=== PATIENT | male | born 1970 | race Caucasian/White ===

== ENCOUNTER 2022-11-27 09:43 | Day surgery (SDC) | payer OTHER, SELFPAY ==
[2022-11-27] VITALS (7 sets, daily range): BP systolic 100–131; BP diastolic 64–78; PULSE 47–68; RESP 12–21; TEMP 36.1–36.9; O2SAT 97–100; BMI 26.4
--- NOTE | 2022-11-27 | PATH_ITS ---
[facility] Accession Number: [id number] No. of containers..01 Tissue . 01 Material submitted: . colon - ASCENDING COLON POLYP . 01 Diagnosis: Ascending Colon, Polypectomy: Tubular adenoma. Additional levels were examined. [facility] 12/03/2022 1132 Local . 01 Electronically signed: . Nisha Bland MD, Pathologist NPI- [id number] . 01 Gross description: . ASCENDING COLON POLYP: Received in formalin is 1 fragment(s) of brady, soft tissue measuring 0.9 x 0.4 x 0.3 cm submitted entirely in 1 cassette(s) /HOME 12/01/2022 1931 Local . 01 Pathologist provided ICD-10: D12.2 . 01 CPT . 758061 Specimen Comment: A courtesy copy of this report has been sent to [phone] Performed at: 01 [facility] Cyt[facility] [address] [place] [address], [place], [place] [id number] MD Porfirio Green MD Phone: [phone]
[2022-11-27] MEDS: LACTATED RINGERS 1,000 ML 42 ML IV (10:13)
--- NOTE | 2022-11-27 10:38 | PM.HP.1 ---
History of Present Illness History of Present Illness Date Patient Seen: 11/27/22 Time Patient Seen: 10:38 Chief complaint: Screening Colonoscopy Narrative: Morales is a 52-year-old man here for colonoscopy. Has never had 1 before. No family history of colon cancer. No medical problems. PFSH Social History household members: spouse Smoking Status: Never smoker alcohol intake: current Meds Home Medications and Allergies Home Medications Medication Instructions Recorded Confirmed Type sodium,potassium,mag sulfates 17.5 See Rx Instructions PO .COMPLEX 10/08/22 Rx gram-3.13 gram-1.6 gram oral soln #354 mL (Suprep Bowel Prep Kit) amoxicillin 875 mg-potassium 1 tab PO BID 11/27/22 11/27/22 History clavulanate 125 mg tablet sumatriptan 20 mg/actuation nasal 20 mg intranasal Q2H PRN Migraine 11/27/22 11/27/22 History spray Headache Allergies Allergy/AdvReac Type Severity Reaction Status Date / Time No Known Drug Allergies Allergy Verified 11/27/22 09:57 Exam Vital Signs (past 8 hours): - 11/27/22 09:59 Temperature 97 F L Pulse Rate 68 Respiratory Rate 21 Blood Pressure 131/78 Pulse Oximetry 100 Oxygen Delivery Method Room Air Oxygen Delivery Method Room Air Const General: healthy appearing Assessment & Plan Assessment and plan (1) Colon cancer screening: Status: Acute Plan We reviewed the risks and benefits of colonoscopy and he would like to proceed.
--- NOTE | 2022-11-27 12:17 | PM.OP.COLON ---
Operative Date/Time/Diagnoses Date of procedure: 11/27/22 Time of procedure: 12:17 Pre-op diagnosis: Colon cancer screening Post-op diagnosis: same Procedure & Clinicians Study performed: Colonoscopy Same procedure as scheduled: Yes Surgeon: Antonio Valerio Procedure Notes Procedure in detail: Surgeon: Antonio Valerio MD Anesthesia: Tory Holland MD Procedure: The patient was brought to the endoscopy suite, placed in left lateral decubitus position. The patient was connected to monitoring devices. A time-out was performed. Sedation was administered. Once the patient was adequately sedated, a digital rectal exam was performed and was normal. The scope was then inserted and advanced with some difficulty to the cecum where the appendiceal orifice was identified and photographed. The colon was quite long and redundant. We had to reposition and apply abdominal pressure to reach the cecum. The scope was then slowly withdrawn over greater than 6 minutes. The mucosa was thoroughly inspected. There was 7 mm polyp in the ascending colon removed with a cold snare. The rest of the colon was normal. The scope was retroflexed in the rectum. No other abnormalities were seen. The scope was straightened and removed. The patient was awakened and brought to recovery. Scope withdrawal time: 6 minutes Sedation time: 36 minutes EBL: 2 mL Findings: Ascending colon polyp Post-procedure Disposition: PACU
== END 2022-11-27 13:11 | disposition home or self-care (01) ==
PROVIDERS: PCP Physician Assistant; Referring Provider Surgery; Visit Provider Surgery
PROC: 0DJD8ZZ Inspection of Lower Intestinal Tract, Via Natural or Artificial Opening Endoscopic (ICD-10-PCS; CPT 45378; principal; 2022-11-27 10:45)
DX: Z12.11 Encounter for screening for malignant neoplasm of colon (principal); D12.2 Benign neoplasm of ascending colon
CPT/HCPCS: 45385; J2405; J2704